=== PATIENT | male | born 1935 | race Caucasian/White ===

== ENCOUNTER 2017-07-02 16:55 | Observation (INO) ==
[2017-07-02] MEDS ORDERED: 0.9 % Sodium Chloride 1,000 ML IVC ONE (17:29)
--- NOTE | 2017-07-02 17:45 | Emergency Department Note ---
START Narrative - START START: I examined this patient and my medical decision-making was reviewed with the Resident Physician. I agree with the documented findings, disposition and treatment plan as described except to the extent set forth below. 82-year-old male presents emergency room with lightheaded symptoms. Patient denies any vertigo component. Symptoms are worse with standing up and movement. Symptoms improved while sitting down. He had a recent increase in his Coreg medication a few weeks ago. He admits he has not been eating and drinking as much. He denies any numbness in orleg.No blindness in his eye.No falls.No chestpain or shortnessofbreath.No vomitingordiarrhea. will obtain labs, ekg, urine, cxr, cta head and neck
[2017-07-02 17:46] LABS: Basophils % 0.6 %; Eosinophils # 0.1 K/mcL (0.0-0.6); Eosinophils % 1.9 %; Hematocrit 37.2 % (37.5-50.1); Hemoglobin 12.2 g/dL (12.9-16.9); Immature Granulocytes % 0.3 % (0-4); Lymphocytes # 1.7 K/mcL (0.6-4.6); Lymphocytes % 25.3 %; Mean Corpuscular HGB Conc 32.8 g/dL (31.6-35.5); Mean Corpuscular Hemoglobin 30.7 pg (28.0-33.3); Mean Corpuscular Volume 93.7 fL (83.0-100.0); Mean Platelet Volume 11.4 fL (9.4-12.4); Monocytes # 0.8 K/mcL (0.0-1.3); Monocytes % 11.5 %; Neutrophils # 4.2 K/mcL (1.6-8.9); Platelet Count 267 K/mcL (140-400); Red Blood Count 3.97 M/mcL (4.19-5.50); Red Cell Distribution Width 13.4 % (11.5-14.5); Segmented Neutrophils % 60.4 %
[2017-07-02 17:58] LABS: BUN/Creatinine Ratio 25 (6-26); Blood Urea Nitrogen 23 mg/dL (8-26); Calcium 9.1 mg/dL (8.6-10.8); Carbon Dioxide 22 mEq/L (19-29); Chloride 112 mEq/L (98-109); Glucose 118 mg/dL (70-99); Magnesium 2.3 mg/dL (1.6-2.6); Osmolality,Calculated 299 (280-300); Potassium 4.2 mEq/L (3.5-4.5); Sodium 142 mEq/L (136-145); eGFR For African Americans > 60 (> 60); eGFR For Non-African Americans > 60 (> 60)
--- NOTE | 2017-07-02 18:06 | Emergency Department Note ---
Disposition Clinical Impression: Dizziness of unknown cause Syncope Qualifiers: Syncope type: unspecified Qualified Code(s): R55 - Syncope and collapse Hypertension Qualifiers: Hypertension type: unspecified Qualified Code(s): I10 - Essential (primary) hypertension Disposition: Still a Patient Condition: Good Referrals: Spenser Malin MD [Primary Care Provider] - Forms: ED Satisfaction Letter Dizziness HPI - General Chief Complaint: ED Dizziness Stated Complaint: Dizzy Time Seen by Provider: 07/02/17 17:07 Source: patient Limitations: no limitations Nursing Notes Reviewed: Yes Vital Signs Reviewed: Yes - History of Present Illness HPI Narrative: Mr. Dumas is 82-year-old male with a past medical history of hypertension presents today with lightheaded symptoms. The patient states that he has been feeling this way for the past few weeks, but it is worse today. He describes it as feeling off balance when he stands but it improves when he sits down and rest. These episodes of feeling off balance occurred more frequently in the past 2 days. The patient states that his primary physician had recently increase his Coreg medications. He also admits that he has not been eating and drinking as much. Patient denies any headaches, fevers, changes in his vision, chest pain, palpitations, shortness of breath, difficulty breathing, abdominal pain, constipation, diarrhea, nausea and vomiting, numbness and tingling, and any weaknesses. He denies any traumas or falls. Pt Subjective Complaint: dizziness, lightheadedness Onset (ago): week(s) Description: lightheadedness, off-balance History of similar episodes: Yes History of trauma: No Improves with: rest Worsens with: movement Associated symptoms: Reports: syncope. Denies: chest pain, confusion, diaphoresis, fever, shortness of breath, weakness, vision changes, nausea, vomiting, palpitations - Related Data Home Medications Medication Instructions Recorded Confirmed Amlodipine Besylate 10 mg PO DAILY 10/01/16 10/01/16 Aspirin 325 mg PO DAILY 10/01/16 10/01/16 Clopidogrel [Plavix] 75 mg PO DAILY 10/01/16 10/01/16 Lisinopril/Hydrochlorothiazide 1 each PO DAILY 10/01/16 10/01/16 [Zestoretic 20-12.5 mg Tablet] Nitroglycerin [Nitrostat] 0.4 mg SL Q5M PRN 10/01/16 10/01/16 Tamsulosin HCl [Flomax] 0.4 mg PO DAILY 10/01/16 10/01/16 Allergies Allergy/AdvReac Type Severity Reaction Status Date / Time No Known Allergies Allergy Verified 06/17/17 21:42 Constitutional: Denies: fever, chills, weakness, weight change Eyes: Denies: eye pain, eye discharge, vision change ENT ED: Denies: ear pain, throat pain, dental pain, hearing loss, epistaxis, congestion, dysphagia Cardiovascular: Denies: chest pain, palpitations, dyspnea on exertion, edema, syncope Respiratory: Denies: cough, dyspnea, wheezes, hemoptysis, stridor Gastrointestinal: Denies: abdominal pain, nausea, vomiting, diarrhea, constipation, hematemesis, melena, hematochezia Genitourinary: Denies: urgency, dysuria, frequency, hematuria Musculoskeletal: Denies: back pain, neck pain, arthralgia, myalgia Integumentary: Denies: rash, abrasion, lesions Neurological: Reports: as per HPI. Denies: headache, weakness, numbness, paresthesias, confusion, abnormal gait, vertigo Psychiatric: Denies: anxiety, depression, suicidal thoughts, homicidal thoughts , auditory hallucinations, visual hallucinations Endocrine: Denies: fatigue Hematological/Lymphatic: Denies: easy bleeding, easy bruising Allergic/Immunologic: Denies: facial swelling, urticaria Past Medical History - Past Medical History Medical history: Reports: CVA, hypertension Surgical history: Reports: cataract (Bilateral removal) Psychiatric history: Reports: no psych history - Social History Smoking Status: Former smoker Smokeless Tobacco Status: No Alcohol use: Reports: none Drug use: Reports: none Physical Exam - General Limitations: no limitations General appearance: alert, in no apparent distress - Head Head exam: atraumatic, normocephalic, normal inspection - Eye Eye exam: Present: normal appearance, PERRL, EOMI - Expanded Eye Exam Pupils: Left: reactive - ENT ENT exam: normal exam, normal oropharynx, mucous membranes moist - Expanded ENT Exam External ear exam: Present: normal external inspection Mouth exam: Present: normal external inspection Teeth exam: Present: normal inspection Throat exam: Present: normal inspection - Neck Neck exam: Present: normal inspection, full ROM, trachea midline - Chest Chest inspection: Present: normal inspection, symmetric chest wall rise - Respiratory Respiratory exam: Present: normal lung sounds bilaterally - Cardiovascular Cardiovascular exam: Present: regular rate, normal rhythm, normal heart sounds - Abdominal Exam Abdominal exam: Present: soft, Non-Tender, normal bowel sounds. Absent: tenderness, distention, guarding, rebound, rigidity - Extremities Exam Extremities exam: Present: normal inspection, full ROM. Absent: tenderness, pedal edema - Expanded Upper Extremity Exam Shoulder exam: Present: normal inspection, full ROM Arm exam: Present: normal inspection, full ROM Elbow exam: Present: normal inspection, full ROM Forearm/Wrist exam: Present: normal inspection, full ROM Hand exam: Present: normal inspection, full ROM Vascular exam: Normal: capillary refill, radial pulse - Expanded Lower Extremity Exam Hip/Pelvis exam: Present: normal inspection, full ROM Upper leg exam: Present: normal inspection, full ROM Knee exam: Present: normal inspection, full ROM Lower leg exam: Present: normal inspection, full ROM Ankle exam: Present: normal inspection, full ROM Foot/toe exam: Present: normal inspection, full ROM Neurovascular/Tendon exam: Absent: motor deficit, sensory deficit, tendon deficit - Back Exam Back exam: Present: normal inspection, full ROM. Absent: tenderness - Neurological Exam Neurological exam: Present: alert, oriented X3 - Expanded Neurological Exam Patient oriented to: Present: person, place, time Cranial nerves: EOM function (II, III, IV, ): Normal, facial sensation (V): Normal, facial palsy (VII): Normal, tongue deviation (XII): Normal Cerebellar function: finger to nose: Normal Motor strength - LUE: 5/5 Motor strength - RUE: 5/5 Motor strength - LLE: 5/5 Motor strength - RLE: 5/5 Coma Scale Eye Opening: Spontaneous Coma Scale Motor Response: Obeys Commands Coma Scale Verbal Response: Oriented Coma Scale Total: 15 - Psychiatric Psychiatric exam: Present: normal affect, normal mood - Skin Skin exam: Present: warm, dry, intact, normal color - Other Other exam information: Negative HINTS exam. Course Course Narrative: Mr. Dumas is 82-year-old male with a past medical history of hypertension presents today with lightheaded symptoms. The patient states that he has been feeling this way for the past few weeks, but it is worse today. He describes it as feeling off balance when he stands but it improves when he sits down and rest. These episodes of feeling off balance occurred more frequently in the past 2 days. The patient states that his primary physician had recently increase his Coreg medications. He also admits that he has not been eating and drinking as much. Vital Signs Temperature 97.8 F 07/02/17 16:57 Pulse Rate 64 07/02/17 16:57 Respiratory Rate 17 07/02/17 16:57 Blood Pressure 172/76 07/02/17 16:57 O2 Sat by Pulse Oximetry 94 07/02/17 16:57 Temperature 97.8 F 07/02/17 16:57 Pulse Rate 62 07/02/17 18:39 Respiratory Rate 17 07/02/17 16:57 Blood Pressure 143/78 07/02/17 18:39 O2 Sat by Pulse Oximetry 99 07/02/17 17:15 Oxygen Delivery Oxygen Delivery Room Air Dizziness - MDM Narrative Medical decision making narrative: Mr. Dumas is 82-year-old male with a past medical history of hypertension presents today with lightheaded symptoms. The patient states that he has been feeling this way for the past few weeks, but it is worse today. He describes it as feeling off balance when he stands but it improves when he sits down and rest. These episodes of feeling off balance occurred more frequently in the past 2 days. Imaging is still pending. Will sign out patient to the night team. - Medical Records Medical records reviewed: Yes I reviewed the patient's medical records. - Lab Data Lab results reviewed: Yes I reviewed the patient's lab results. Result diagrams: 07/02/17 17:37 07/02/17 17:37 Lab Results 07/02/17 07/02/17 07/02/17 Range/Units 17:37 17:37 17:37 WBC 6.9 (4.3-11.1) K/mcL RBC 3.97 L (4.19-5.50) M/mcL Hgb 12.2 L (12.9-16.9) g/dL Hct 37.2 L (37.5-50.1) % MCV 93.7 (83.0-100.0) fL MCH 30.7 (28.0-33.3) pg MCHC 32.8 (31.6-35.5) g/dL RDW 13.4 (11.5-14.5) % Plt Count 267 (140-400) K/mcL MPV 11.4 (9.4-12.4) fL Immature Gran % 0.3 (0-4) % Seg Neutrophils % 60.4 % Lymphocytes % 25.3 % Monocytes % 11.5 % Eosinophils % 1.9 % Basophils % 0.6 % Neutrophils # 4.2 (1.6-8.9) K/mcL Lymphocytes # 1.7 (0.6-4.6) K/mcL Monocytes # 0.8 (0.0-1.3) K/mcL Eosinophils # 0.1 (0.0-0.6) K/mcL Basophils # 0.0 (0.0-0.2) K/mcL Sodium 142 (136-145) mEq/L Potassium 4.2 (3.5-4.5) mEq/L Chloride 112 H (98-109) mEq/L Carbon Dioxide 22 (19-29) mEq/L BUN 23 (8-26) mg/dL Creatinine 0.92 (0.72-1.25) mg/dL Est GFR ( Amer) > 60 (> 60) Est GFR (Non-Af Amer) > 60 (> 60) BUN/Creatinine Ratio 25 (6-26) Glucose 118 H (70-99) mg/dL Calculated Osmolality 299 (280-300) Calcium 9.1 (8.6-10.8) mg/dL Magnesium 2.3 (1.6-2.6) mg/dL Troponin I 0.02 (0-0.03) ng/mL - EKG Data EKG attestation: Yes I reviewed and interpreted this EKG. EKG shows normal: sinus rhythm Rate: bradycardia Amoret/QRS: normal Interpretation: no acute changes
[2017-07-02 19:42] LABS: Bilirubin,Urine Negative (Negative); Blood,Urine Negative (Negative); Clarity,Urine Clear (Clear); Color,Urine Yellow (Yellow); Glucose,Urine (UA) Normal (Normal); Ketones,Urine Negative (Negative); Leukocyte Esterase,Urine Negative (Negative); Nitrite,Urine Negative (Negative); Protein,Urine Negative (Neg-Trace); Specific Gravity,Urine > 1.030 (1.010-1.025); Urobilinogen,Urine Normal (Normal)
--- NOTE | 2017-07-02 20:58 | Emergency Department Note ---
Disposition Clinical Impression: Dizziness of unknown cause Syncope Qualifiers: Syncope type: unspecified Qualified Code(s): R55 - Syncope and collapse Hypertension Qualifiers: Hypertension type: unspecified Qualified Code(s): I10 - Essential (primary) hypertension Disposition: Admitted As Inpatient Condition: Good Time of Disposition: 21:10 General Adult HPI - General Chief complaint: ED Dizziness Stated complaint: Dizzy Time Seen by Provider: 07/02/17 17:07 Source: patient Limitations: no limitations Nursing Notes Reviewed: Yes Vital Signs Reviewed: Yes - History of Present Illness Pain Scale: 0 - Related Data Home Medications Medication Instructions Recorded Confirmed Amlodipine Besylate 10 mg PO DAILY 10/01/16 07/02/17 Aspirin 325 mg PO DAILY 10/01/16 07/02/17 Clopidogrel [Plavix] 75 mg PO DAILY 10/01/16 07/02/17 Nitroglycerin [Nitrostat] 0.4 mg SL Q5M PRN 10/01/16 07/02/17 Antiiva 2 tab PO DAILY 07/02/17 07/02/17 Buspirone HCl [Buspar] 5 mg PO TID PRN 07/02/17 07/02/17 Carvedilol [Coreg] 6.25 mg PO BID 07/02/17 07/02/17 Spironolactone [Aldactone] 25 mg PO DAILY 07/02/17 07/02/17 Allergies Allergy/AdvReac Type Severity Reaction Status Date / Time No Known Allergies Allergy Verified 06/17/17 21:42 All systems ED: reviewed and negative except as stated. Constitutional: Denies: fever, chills, weakness, weight change Eyes: Denies: eye pain, eye discharge, vision change ENT ED: Denies: ear pain, throat pain, dental pain, hearing loss, epistaxis, congestion, dysphagia Cardiovascular: Denies: chest pain, palpitations, dyspnea on exertion, edema, syncope Respiratory: Denies: cough, dyspnea, wheezes, hemoptysis, stridor Gastrointestinal: Denies: abdominal pain, nausea, vomiting, diarrhea, constipation, hematemesis, melena, hematochezia Genitourinary: Denies: urgency, dysuria, frequency, hematuria Musculoskeletal: Denies: back pain, neck pain, arthralgia, myalgia Integumentary: Denies: rash, abrasion, lesions Neurological: Reports: as per HPI. Denies: headache, weakness, numbness, paresthesias, confusion, abnormal gait, vertigo Psychiatric: Denies: anxiety, depression, suicidal thoughts, homicidal thoughts , auditory hallucinations, visual hallucinations Endocrine: Denies: fatigue Hematological/Lymphatic: Denies: easy bleeding, easy bruising Allergic/Immunologic: Denies: facial swelling, urticaria Past Medical History - Past Medical History Medical history: Reports: CVA, hypertension Surgical history: Reports: cataract (Bilateral removal) Psychiatric history: Reports: no psych history - Social History Smoking Status: Former smoker Smokeless Tobacco Status: No Alcohol use: Reports: none Drug use: Reports: none Physical Exam - General Limitations: no limitations General appearance: alert, in no apparent distress - Head Head exam: atraumatic, normocephalic, normal inspection - Eye Eye exam: Present: normal appearance, PERRL, EOMI - ENT ENT exam: normal exam, normal oropharynx, mucous membranes moist - Neck Neck exam: Present: normal inspection, full ROM, trachea midline - Chest Chest inspection: Present: normal inspection, symmetric chest wall rise. Absent : tenderness - Respiratory Respiratory exam: Present: normal lung sounds bilaterally. Absent: respiratory distress, accessory muscle use - Cardiovascular Cardiovascular exam: Present: regular rate, normal rhythm, normal heart sounds - Extremities Exam Extremities exam: Present: normal inspection, full ROM. Absent: tenderness, pedal edema - Neurological Exam Neurological exam: Present: alert, oriented X3 - Psychiatric Psychiatric exam: Present: normal affect, normal mood - Skin Skin exam: Present: warm, dry, intact, normal color Course Course Narrative: Patient signed out by vincenzo. Please see their notes for further. Concerns were for central versus peripheral lesion for near syncopal episodes and dizziness. Patient is resting comfortably in bed at this time. States that this is been going on for several weeks. CTA of patient's head and neck showed several areas of progressive stenosis. I spoke with the neurologist on-call. He is requesting the patient be admitted to the hospital. Will see him while he is admitted. I agree that admission is the appropriate action for this patient. He initially refused admission however after speaking with him again in discussing that the neurologist would also feel comfortable if he was admitted he is agreeable. We will admit him to the hospital. - Consultations Consultation #1: Dr Camejo accepted Pt in stable condition. Time: 20:51 Consultation #2: I spoke with Dr Shi who recommended admission. He states that he will see the Pt in the morning here. Time: 20:15 Vital Signs Temperature 97.8 F 07/02/17 16:57 Pulse Rate 64 07/02/17 16:57 Respiratory Rate 17 07/02/17 16:57 Blood Pressure 172/76 07/02/17 16:57 O2 Sat by Pulse Oximetry 94 07/02/17 16:57 Temperature 97.8 F 07/02/17 16:57 Pulse Rate 62 07/02/17 18:39 Respiratory Rate 18 07/02/17 21:24 Blood Pressure 150/85 07/02/17 21:24 O2 Sat by Pulse Oximetry 99 07/02/17 17:15 Oxygen Delivery Oxygen Delivery Room Air Medical Decision Making - Medical Records Medical records reviewed: Yes I reviewed the patient's medical records. - Lab Data Lab results reviewed: Yes I reviewed the patient's lab results. Result diagrams: 07/02/17 17:37 07/02/17 17:37 Lab Results 07/02/17 07/02/17 07/02/17 Range/Units 17:37 17:37 17:37 WBC 6.9 (4.3-11.1) K/mcL RBC 3.97 L (4.19-5.50) M/mcL Hgb 12.2 L (12.9-16.9) g/dL Hct 37.2 L (37.5-50.1) % MCV 93.7 (83.0-100.0) fL MCH 30.7 (28.0-33.3) pg MCHC 32.8 (31.6-35.5) g/dL RDW 13.4 (11.5-14.5) % Plt Count 267 (140-400) K/mcL MPV 11.4 (9.4-12.4) fL Immature Gran % 0.3 (0-4) % Seg Neutrophils % 60.4 % Lymphocytes % 25.3 % Monocytes % 11.5 % Eosinophils % 1.9 % Basophils % 0.6 % Neutrophils # 4.2 (1.6-8.9) K/mcL Lymphocytes # 1.7 (0.6-4.6) K/mcL Monocytes # 0.8 (0.0-1.3) K/mcL Eosinophils # 0.1 (0.0-0.6) K/mcL Basophils # 0.0 (0.0-0.2) K/mcL Sodium 142 (136-145) mEq/L Potassium 4.2 (3.5-4.5) mEq/L Chloride 112 H (98-109) mEq/L Carbon Dioxide 22 (19-29) mEq/L BUN 23 (8-26) mg/dL Creatinine 0.92 (0.72-1.25) mg/dL Est GFR ( Amer) > 60 (> 60) Est GFR (Non-Af Amer) > 60 (> 60) BUN/Creatinine Ratio 25 (6-26) Glucose 118 H (70-99) mg/dL Calculated Osmolality 299 (280-300) Calcium 9.1 (8.6-10.8) mg/dL Magnesium 2.3 (1.6-2.6) mg/dL Troponin I 0.02 (0-0.03) ng/mL Urine Color (Yellow) Urine Clarity (Clear) Urine pH (5.0-8.0) pH Units Ur Specific [place] (1.010-1.025) Urine Protein (Neg-Trace) mg/dL Urine Glucose (UA) (Normal) mg/dL Urine Ketones (Negative) mg/dL Urine Blood (Negative) Urine Nitrite (Negative) Urine Bilirubin (Negative) Urine Urobilinogen (Normal) mg/dL Ur Leukocyte Esterase (Negative) Ur Culture Indicated? (NO) 07/02/17 Range/Units 19:35 WBC (4.3-11.1) K/mcL RBC (4.19-5.50) M/mcL Hgb (12.9-16.9) g/dL Hct (37.5-50.1) % MCV (83.0-100.0) fL MCH (28.0-33.3) pg MCHC (31.6-35.5) g/dL RDW (11.5-14.5) % Plt Count (140-400) K/mcL MPV (9.4-12.4) fL Immature Gran % (0-4) % Seg Neutrophils % % Lymphocytes % % Monocytes % % Eosinophils % % Basophils % % Neutrophils # (1.6-8.9) K/mcL Lymphocytes # (0.6-4.6) K/mcL Monocytes # (0.0-1.3) K/mcL Eosinophils # (0.0-0.6) K/mcL Basophils # (0.0-0.2) K/mcL Sodium (136-145) mEq/L Potassium (3.5-4.5) mEq/L Chloride (98-109) mEq/L Carbon Dioxide (19-29) mEq/L BUN (8-26) mg/dL Creatinine (0.72-1.25) mg/dL Est GFR ( Amer) (> 60) Est GFR (Non-Af Amer) (> 60) BUN/Creatinine Ratio (6-26) Glucose (70-99) mg/dL Calculated Osmolality (280-300) Calcium (8.6-10.8) mg/dL Magnesium (1.6-2.6) mg/dL Troponin I (0-0.03) ng/mL Urine Color Yellow (Yellow) Urine Clarity Clear (Clear) Urine pH 6.0 (5.0-8.0) pH Units Ur Specific [place] > 1.030 H (1.010-1.025) Urine Protein Negative (Neg-Trace) mg/dL Urine Glucose (UA) Normal (Normal) mg/dL Urine Ketones Negative (Negative) mg/dL Urine Blood Negative (Negative) Urine Nitrite Negative (Negative) Urine Bilirubin Negative (Negative) Urine Urobilinogen Normal (Normal) mg/dL Ur Leukocyte Esterase Negative (Negative) Ur Culture Indicated? NO (NO) - Radiology Data Radiology results reviewed: Yes I reviewed the patient's radiology results. Angiography CT 07/02/17 17:27 IMPRESSION: No acute intracranial abnormality. Small old infarction in the right cerebellar hemisphere, stable. Mild parenchymal volume loss. Mild chronic microvascular disease. Multiple areas of focal stenosis in the intracranial vessels, likely related to atherosclerotic disease. 40% focal stenosis at the proximal A2 segment of the right BERTHA, grossly stable. 40% focal stenosis at the origins of the M2 segments of the bilateral MCAs, grossly stable. origins of the bilateral industrial relations counselor. 40-60% focal stenosis at the P2 segment of the bilateral industrial relations counselor, stable on the left and improved on the right. 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 Occlusion of the right vertebral artery starting from its origin with reconstitution in the mid V2 segment and minimally in the V3 segment, stable to minimally progressed. 30-40% focal stenosis at the origins of the bilateral cervical internal arteries, stable. D/ / Oracio Xie MD / Oracio Xie MD Interpreting Provider: Oracio Xie MD Neck CTA 07/02/17 17:27 IMPRESSION: No acute intracranial abnormality. Small old infarction in the right cerebellar hemisphere, stable. Mild parenchymal volume loss. Mild chronic microvascular disease. Multiple areas of focal stenosis in the intracranial vessels, likely related to atherosclerotic disease. 40% focal stenosis at the proximal A2 segment of the right BERTHA, grossly stable. 40% focal stenosis at the origins of the M2 segments of the bilateral MCAs, grossly stable. origins of the bilateral industrial relations counselor. 40-60% focal stenosis at the P2 segment of the bilateral industrial relations counselor, stable on the left and improved on the right. 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 Occlusion of the right vertebral artery starting from its origin with reconstitution in the mid V2 segment and minimally in the V3 segment, stable to minimally progressed. 30-40% focal stenosis at the origins of the bilateral cervical internal arteries, stable. D/ / Oracio Xie MD / Oracio Xie MD Interpreting Provider: Oracio Xie MD Chest X-Ray 07/02/17 17:45 IMPRESSION: No evidence of acute cardiopulmonary disease. D/ / Kvng Ferguson MD / Kvng Ferguson MD Interpreting Provider: Kvng Ferguson MD Attestation Statement - Attestation Attestation: I, Hoang Collins MD, personally evaluated this patient and discussed their management with the resident physician. I reviewed the resident's note and agree with the documented findings, medical decision making, and plan of care. This patient was signed out at shift change from Dr. Constantino and Dr. Brantley. Please refer to their notes for complete details of the history and physical examination. At shift change patient is awaiting lab results and a CTA of the head and neck. Patient is an 82-year-old male who presented complaining of some dizziness and lightheadedness over the past several weeks which has gotten significantly worse over the past few days. On examination patient is a well-developed well-nourished elderly male in no acute distress. He is alert and oriented 3. There is no cyanosis or diaphoresis. Chest is nontender to palpation. Breath sounds clear and equal bilaterally. Heart regular rate and rhythm. Abdomen is soft and nontender with normal bowel sounds. No gross focal neurological deficits. Labs reviewed. CTA of the head and neck shows multiple areas of cerebrovascular atherosclerosis with progression of disease compared to previous exam. Dr. Tellez discussed with neurology, Dr. Shi, and he recommended admission by the hospitalist. The hospitalist, Dr. Camejo, was consulted and accepted admission of the patient.
[2017-07-02] MEDS ORDERED: Naloxone 0.4 MG/ML INJ IVP PRN (21:47)
--- NOTE | 2017-07-02 21:53 | Internal Med History&Physical ---
Date of Encounter: 07/02/17 Time of Encounter: 21:52 Assessment and Plan (1) Dizziness of unknown cause Current visit: Yes Status: Acute Known vascular path. Question whether presentation could be related to vascular insufficiency. To have neuro assist in evaluation and optimized medical management Check orthostatic, PT/PT (doubt related to recent adjustment in coreg dose). Avoid lowering blood pressure too aggressively to provide adequate cerebral perfusion Has been on aspirin, Plavix. We will add Lipitor (2) Hypertension Current visit: Yes Status: Acute Continue medicines, check orthostatics Qualifiers: Hypertension type: unspecified Qualified Code(s): I10 - Essential (primary ) hypertension (3) Cerebrovascular accident Current visit: No Status: Acute History of CVA. Qualifiers: CVA mechanism: unspecified Qualified Code(s): I63.9 - Cerebral infarction, unspecified (4) Fall Current visit: No Status: Acute Related to dizziness/ off balance. Pending w/u above Qualifiers: Encounter type: subsequent encounter Qualified Code(s): W19.XXXD - Unspecified fall, subsequent encounter (5) TIA (transient ischemic attack) Current visit: No Status: Acute hx of TIA Qualifiers: Transient cerebral ischemia type: other Qualified Code(s): G45.8 - Other transient cerebral ischemic attacks and related syndromes Internal Medicine - H&P: HPI Chief complaint: BalanceOff balance History of present illness: Mr. Dumas is a 82 year old male who presents with subacute onset spells of being off balance. He does have a history of CVA in 2010 and has a known history of cerebral circulatory stenosis. He describes feeling spells of off balance for the last 5 weeks now with multiple episodes of near falls up to a dozen times. He also had fallen twice at home in the last couple weeks. He does not use a cane or walker at baseline he describes feeling off balance, denies vertigo, and experiences difficulty walking and standing. Experiences difficulty with ambulatory ambulatory function across the room in his home. Of note his Coreg dose was recently adjusted but is not certain whether his symptoms were related to that medication adjustments. He did however report that his off balance spells were improved with sitting . He mentions that he could be standing for a couple minutes before feeling off balance with presyncopal symptoms. On review 3-4 days ago he had paresthesia sensation of his right hand. She resolved very quickly over one day the ED discussed case with Dr. Shi of neurology who would assist in evaluation given CT anginal findings vascular stenosis diffusely EKG personally reviewed with rate 58, sinus bradycardia XR/XR chest 1V portable IMPRESSION: No evidence of acute cardiopulmonary disease. FINDINGS: CT HEAD: BRAIN/VENTRICLES: There is mild parenchymal volume loss. There is periventricular white matter low attenuation, likely related to mild chronic microvascular disease. There is a small old infarction in the right cerebellar hemisphere. No acute intracranial hemorrhage or extraaxial fluid collection. Mtz-white differentiation is maintained. No evidence of mass, mass effect or midline shift. No evidence of hydrocephalus. ORBITS: The visualized portion of the orbits demonstrate no acute abnormality. SINUSES: There is scattered minimal mucosal thickening in the paranasal sinuses. The bilateral mastoid air cells are clear. SOFT TISSUES/SKULL: No acute abnormality of the visualized skull or soft tissues. CTA NECK: AORTIC ARCH/GREAT VESSELS: There is a normal branch pattern of the aortic arch. There is moderate atherosclerotic disease at the aortic arch, without flow limiting stenosis at the origins of the great vessels. No significant stenosis is seen of the innominate artery or subclavian arteries. CAROTID ARTERIES: The common carotid arteries are normal in appearance without evidence of a flow limiting stenosis. There is moderate atherosclerotic disease at the bilateral carotid bulbs, contributing to approximately 30-40% focal stenosis at the origins of the bilateral internal arteries by NASCET criteria, stable. No dissection or arterial injury is seen. VERTEBRAL ARTERIES: The vertebral arteries both arise from the subclavian arteries. There is occlusion of the right vertebral artery starting from its origin with reconstitution in the mid V2 segment. There is near occlusion at the distal V2 segment of the right vertebral artery with a area of mild contrast opacification in the right V4 segment, stable to minimally progressed. The left cervical vertebral artery is small in caliber, without flow limiting stenosis, grossly stable. SOFT TISSUES: The lung apices are clear. No cervical or superior mediastinal lymphadenopathy. The visualized portion of the larynx and pharynx appear unremarkable. The parotid, submandibular and thyroid glands demonstrate no acute abnormality. BONES: The visualized osseous structures appear unremarkable. CTA HEAD: ANTERIOR CIRCULATION: The internal carotid arteries are normal in course and caliber without focal stenosis. There is approximately 40% focal stenosis at the proximal A2 segment of the right BERTHA, grossly stable. There is up to 40% focal stenosis at the origin of the M2 segments of the bilateral MCAs, grossly stable. The remainder of the anterior cerebral and middle cerebral arteries demonstrate no focal stenosis. The anterior communicating artery is patent. POSTERIOR CIRCULATION: There is origin of the bilateral sales exec with hypoplastic bilateral P1 segments. There is approximately 40-60% focal stenosis at the P2 segment of the bilateral sales exec, stable on the left and improved on the right. The remainder of the bilateral sales exec are patent. 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 There are areas of moderate to severe focal stenosis in the proximal to mid basilar artery, most severe at is origin with near occlusion, grossly stable. There is occlusion of the V4 segment of the right vertebral artery, progressed. There is severe stenosis of the left vertebral artery with multiple areas of near occlusion in the mid to distal portion of the left V4 segment, stable to minimally progressed. ANEURYSM: No intracranial aneurysm is seen. CT/CT angio neck IMPRESSION: No acute intracranial abnormality. Small old infarction in the right cerebellar hemisphere, stable. Mild parenchymal volume loss. Mild chronic microvascular disease. Multiple areas of focal stenosis in the intracranial vessels, likely related to atherosclerotic disease. 40% focal stenosis at the proximal A2 segment of the right BERTHA, grossly stable. 40% focal stenosis at the origins of the M2 segments of the bilateral MCAs, grossly stable. origins of the bilateral sales exec. 40-60% focal stenosis at the P2 segment of the bilateral sales exec, stable on the left and improved on the right. 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 Occlusion of the right vertebral artery starting from its origin with reconstitution in the mid V2 segment and minimally in the V3 segment, stable to minimally progressed. 30-40% focal stenosis at the origins of the bilateral cervical internal arteries, stable. Past Med Surg Social Fam HX - Past Medical History Medical history: CVA, hypertension Psychiatric history: no psych history - Past Surgical History Surgical History: cataract (Bilateral removal) - Social History Smoking Status: Former smoker Smokeless Tobacco Status: No Alcohol use: none Drug use: none - Family History Brother Hx Family Cardiac Disorders: Yes ([place]) Mother Living Status: Hx Family Cardiac Disorders: Yes Internal Medicine - H&P: Meds Amlodipine Besylate 10 mg PO DAILY 10/01/16 [History] Aspirin 325 mg PO DAILY 10/01/16 [History] Clopidogrel [Plavix] 75 mg PO DAILY 10/01/16 [History] Nitroglycerin [Nitrostat] 0.4 mg SL Q5M PRN 10/01/16 [History] Antiiva 2 tab PO DAILY 07/02/17 [History] Buspirone HCl [Buspar] 5 mg PO TID PRN 07/02/17 [History] Carvedilol [Coreg] 6.25 mg PO BID 07/02/17 [History] Spironolactone [Aldactone] 25 mg PO DAILY 07/02/17 [History] 3 Allergy/AdvReac Type Severity Reaction Status Date / Time No Known Allergies Allergy Verified 06/17/17 21:42 All Systems PM: A 10-system review of systems was performed and is negative for pertinent findings except as documented above in the HPI. Review of systems: ROS 14 point review of systems reviewed as best as possible given presentation. Pertinent positive or negative as per HPI or otherwise reviewed as negative - Constitutional Vitals: Temp Pulse Resp BP Pulse Ox 97.7 F 65 16 167/67 96 07/02/17 21:44 07/02/17 21:44 07/02/17 21:44 07/02/17 21:44 07/02/17 21:44 Exam: General - AAO x 3 Psych - Appropriate affect/speech. No agitation Eyes - DEBBIE. Eye lids intact. No scleral icterus Neuro - No gross peripheral or central neuro deficits with intact CN 2-12 exam Heart - Sinus cindy. RRR. S1 and S2 present. No added HS/murmurs appreciated. No elevated JVD appreciated. Lung - Adequate air entry b/l, No crackles/wheezes appreciated GI - Soft, non-tender. No hepatosplenomegaly/ascites. BS+ - No CVA/suprapubic tenderness or palpable bladder distension Skin - Intact. No rash/petechiae/ecchymosis. Warm extremities Internal Med - H&P Results - Labs CBC & Chem 7: 07/02/17 17:37 07/02/17 17:37
[2017-07-02] MEDS: Aspirin 325 MG TABLET PO SCH (23:26)
[2017-07-02] MEDS: amLODIPine 5 MG TABLET PO SCH (23:27)
[2017-07-02] MEDS: Spironolactone 25 MG TABLET PO SCH (23:27)
[2017-07-03] MEDS ORDERED: Spironolactone 25 MG TABLET PO SCH (09:00)
[2017-07-03] MEDS ORDERED: amLODIPine 5 MG TABLET PO SCH (09:00)
[2017-07-03] MEDS ORDERED: Aspirin 325 MG TABLET PO SCH (09:00)
--- NOTE | 2017-07-03 11:08 | Neurology - Consult Note ---
<Robles Schrader - Last Filed: 07/03/17 10:58> Date of Encounter: 07/03/17 Time of Encounter: 10:00 Assessment and Plan (1) Dizziness of unknown cause Current Visit: Yes Status: Acute Patient reports having diziness for the past year with worsening in the past couple months and further worsening in the past 2 weeks. He reports that he has several episodes a day with each episode lasting 3-4 minutes. He reports having fallen several times, with the last known fall being 2 days ago. He denies having any focal symptoms. He has been taking 325 asa and 75 plavix daily since his CVA. PE did not show any neurologic deficits. CTA did show many areas of focal stenosis in his cerebral arteries. Of these the moderate-severe stenosis seen in his basilar artery could potentially be contributing to his current symptoms. Recommend MRI Continue Plavix (2) History of CVA (cerebrovascular accident) Current Visit: No Status: Acute Prior CVA in 2010. No residual deficits. History of Present Illness Chief complaint: Dizziness HPI: Mr. Dumas is a 82 year old male with prior medical history of hypertension and CVA 2010 who presents to [facility] yesterday evening with reports of episodic dizzy spells. He reports that he has noticed increased dizziness for the last year but it has worsened in the last couple months and further worsening last 2 weeks. He states that he has fallen twice, without injuries, and has had many other episodes of almost falling. He denies having vertigo or spinning sensation, reports general dizziness in which she will start to veer to his right. He denies having sensation of presyncope denies loss of consciousness. Each of these episodes typically last 3-4 minutes and has observed that sitting or couple minutes and will resolve the episodes. He reports that the episodes seemed to start when he is standing for a little bit. He denies having any focal symptoms, denies headaches, denies changes in his vision or loss of vision. He denies weakness or loss of sensation in any part of his body. 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 Past Med Surg Social Fam HX - Past Medical History Medical history: CVA, hypertension Psychiatric history: no psych history - Past Surgical History Surgical History: cataract (Bilateral removal) - Social History Smoking Status: Former smoker Smokeless Tobacco Status: No Alcohol use: none Drug use: none - Family History Brother Hx Family Cardiac Disorders: Yes ([place]) Mother Living Status: Hx Family Cardiac Disorders: Yes Medications and Allergies Amlodipine Besylate 10 mg PO DAILY 10/01/16 [History] Aspirin 325 mg PO DAILY 10/01/16 [History] Clopidogrel [Plavix] 75 mg PO DAILY 10/01/16 [History] Nitroglycerin [Nitrostat] 0.4 mg SL Q5M PRN 10/01/16 [History] Antiiva 2 tab PO DAILY 07/02/17 [History] Buspirone HCl [Buspar] 5 mg PO TID PRN 07/02/17 [History] Carvedilol [Coreg] 6.25 mg PO BID 07/02/17 [History] Spironolactone [Aldactone] 25 mg PO DAILY 07/02/17 [History] 3 Allergy/AdvReac Type Severity Reaction Status Date / Time No Known Allergies Allergy Verified 06/17/17 21:42 - Constitutional Constitutional ROS IM: no anorexia, no chills, no fatigue, no fever(s), no headache(s), no weakness - Nose, Mouth, Throat Nose, mouth and throat: dizziness, no disequilibrium, no headache(s), no vertigo - Cardiovascular Cardiovascular ROS IM: no chest pain, no palpitations - Gastrointestinal Gastrointestinal: no abdominal pain, no nausea, no vomiting - Musculoskeletal Musculoskeletal ROS IM: abnormal gait, no muscle weakness, no neck pain, no numbness, no stiffness, no tingling - Neurological Neurological ROS: abnormal gait, disequilibrium, dizziness, frequent falls, vertigo (Last fall 2 days ago), no abnormal hearing, no abnormal movements, no confusion, no focal weakness, no headache(s), no lack of coordination, no loss of vision, no numbness, no sensory deficit, no syncope, no tingling, no weakness , no other visual disturbances Physical Examination - Vital Signs Vital Signs: Initial Vital Signs Temp Pulse Resp BP Pulse Ox 97.8 F 64 17 172/76 94 07/02/17 16:57 07/02/17 16:57 07/02/17 16:57 07/02/17 16:57 07/02/17 16:57 - Constitutional General appearance: comfortable, younger than stated age - Neurologic Sensorimotor examination: intact Detailed motor examination: grossly full strength in all extremities, full strength in all major muscle groups Motor examination - right side: 02/07: deltoids, biceps, triceps, wrist flexion, wrist extension, director of physician practices, hip flexors, tibialis Anterior, quadriceps, toe extension (EHL), plantarflexion Motor examination - left side: 02/07: deltoids, biceps, triceps, wrist flexion, wrist extension, hip flexors, director of physician practices, quadriceps, tibialis Anterior, toe extension (EHL), plantarflexion Detailed sensory examination: intact Reflex and gait examination: intact Reflexes: Biceps: 2+, Triceps: 2+, Brachioradialis: 2+, Patella: 2+, Achilles: 2 + Mental Status Examination: awake, alert, oriented to person, oriented to place, oriented to time, follows commands appropriately, answers questions appropriately Cranial nerve examination: PERRL, EOMI, visual day intact, sensory to face intact, no facial asymmetry is present, no dysarthria, hearing is intact symmetrically, tongue protrudes midline, no atrophy or facial fasiculations present Cerebellar examination: no dysmetria, performs finger to nose and heel to quiros symmetrically without ataxia, no gait ataxia, no truncal ataxia, no difficulty with rapid alternating movements Results - Laboratory Findings CBC and BMP: 07/02/17 17:37 07/02/17 17:37 Abnormal lab findings: Abnormal lab results RBC 3.97 M/mcL (4.19-5.50) L 07/02/17 17:37 Hgb 12.2 g/dL (12.9-16.9) L 07/02/17 17:37 Hct 37.2 % (37.5-50.1) L 07/02/17 17:37 Chloride 112 mEq/L (98-109) H 07/02/17 17:37 Glucose 118 mg/dL (70-99) H 07/02/17 17:37 POC Glucose 123 (58-89) H 07/02/17 17:24 Ur Specific [place] > 1.030 (1.010-1.025) H 07/02/17 19:35 Consult Discharge Plan - Plan Referrals: Spenser Malin MD [Primary Care Provider] - <Perry Shi - Last Filed: 07/03/17 17:15> Date of Encounter: 07/03/17 Assessment and Plan (1) Dizziness of unknown cause Current Visit: Yes Status: Acute I agree with Dr. Schrader's differential as stated above. This gentleman unfortunately has multiple intracranial stenosis including in the basilar and vertebral arteries. The nature of his events does not seem to be consistent with an anterior circulation event. Certainly a brainstem event or perhaps one of the cerebellar arteries could cause this temporary and balance and staggering toward the right. He also seems momentarily confused to rule out the possibility of a partial seizure. He does not really seem to have a decreased level of consciousness. Instrument is adamantly against an MRI scan of the brain. Even if there were small infarct not certain if there is much more to offer as he is already on a combination of Plavix and aspirin daily. There may be a relative indication for anticoagulation however there really are not any studies to improve its effectiveness under this scenario. Unfortunately there may not be much else to offer. I am not convinced that we are dealing with any labyrinthine cause of the spells. I will obtain an EEG and see him tomorrow. History of Present Illness HPI: Chart was reviewed independently, the patient was seen and examined along with Dr. Schrader. I agree with his history as stated above. All Systems: A 10-system review of systems was performed and is negative for pertinent findings except as documented above in the HPI. Physical Examination - Vital Signs Vital Signs: Initial Vital Signs Temp Pulse Resp BP Pulse Ox 97.8 F 64 17 172/76 94 07/02/17 16:57 07/02/17 16:57 07/02/17 16:57 07/02/17 16:57 07/02/17 16:57 - Neurologic Detailed motor examination: full strength in all major muscle groups Motor examination - right side: 5/5: deltoids, biceps, triceps, wrist flexion, wrist extension, director of physician practices, hip flexors, tibialis Anterior, quadriceps, toe extension (EHL), plantarflexion Motor examination - left side: 5/5: deltoids, biceps, triceps, wrist flexion, wrist extension, hip flexors, director of physician practices, quadriceps, tibialis Anterior, toe extension (EHL), plantarflexion Mental Status Examination: awake, alert, oriented to person, oriented to place, oriented to time, follows commands appropriately, answers questions appropriately, no agnosia, no aphasia, no aproxia Cranial nerve examination: PERRL, EOMI, visual day intact, corneal reflexes brisk symmetrically, sensory to face intact, mastication intact, no facial asymmetry is present, no dysarthria, hearing is intact symmetrically, soft palate elevates bilaterally upon phonation, gag reflex intact, flexes SCM and trapezius muscles symmetrically with full power, tongue protrudes midline, no atrophy or facial fasiculations present Cerebellar examination: no dysmetria, performs finger to nose and heel to quiros symmetrically without ataxia, no gait ataxia, no truncal ataxia, no difficulty with rapid alternating movements Results - Laboratory Findings CBC and BMP: 07/02/17 17:37 07/02/17 17:37 Abnormal lab findings: Abnormal lab results RBC 3.97 M/mcL (4.19-5.50) L 07/02/17 17:37 Hgb 12.2 g/dL (12.9-16.9) L 07/02/17 17:37 Hct 37.2 % (37.5-50.1) L 07/02/17 17:37 Chloride 112 mEq/L (98-109) H 07/02/17 17:37 Glucose 118 mg/dL (70-99) H 07/02/17 17:37 POC Glucose 123 (58-89) H 07/02/17 17:24 Ur Specific [place] > 1.030 (1.010-1.025) H 07/02/17 19:35
--- NOTE | 2017-07-03 15:59 | Internal Med Progress Note ---
Date of Encounter: 07/08/17 Time of Encounter: 15:53 - Assessment and plan (1) Dizziness of unknown cause Status: Acute Assessment and plan: Presented with spells of feeling off balance intermittent for 5 weeks prior to presentation, now worsening with multiple episodes of near falls. Patient states he will veer off to the right when he is ambulating. CTA with multiple areas of focal cerebral artery stenosis, some moderate to severe stenosis and basilar artery. Continue ASA, Plavix, statin. Neurology, PT/OT consulted. Brain MRI pending. (2) Hypertension Status: Chronic Assessment and plan: per hx. BP variable and mildly elevated at times however acceptable. Will allow for permissive hypertension to encourage cerebral perfusion. Monitor BP and titrate PRN Qualifiers: Hypertension type: essential hypertension Qualified Code(s): I10 - Essential (primary) hypertension (3) History of CVA (cerebrovascular accident) Status: Chronic Assessment and plan: With no residual effects. Continue home ASA, Plavix, statin (4) DVT prophylaxis Status: Acute - Time Spent With Patient 25 - 35 minutes - Subjective Interval history: Seen and examined at bedside. Says he feels fine at the current moment. No lightheadedness or dizziness. Says symptoms only occur when he is ambulating any veers off to the right. Symptoms come and go and are unpredictable. Denies chest pain, no shortness of breath. No headache, no change in vision, no blurred vision. No palpitations - Constitutional Vitals: Temp Pulse Resp BP Pulse Ox 97.7 F 63 16 149/67 97 07/03/17 15:12 07/03/17 15:12 07/03/17 15:12 07/03/17 15:12 07/03/17 15:12 General appearance: Present: A&O X 3 - Head Head exam: Present: atraumatic, normocephalic - Eye Eye exam: Present: PERRL, conjuntiva pink, sclera anicteric Pupils: Present: PERRL - Neck Neck exam general surgery: Present: supple, trachea midline. Absent: lymphadenopathy - Respiratory Respiratory exam: Present: CTAB. Absent: accessory muscle use, rales, rhonchi, wheezes - Cardiovascular Cardiovascular exam: Present: RRR, +S1, +S2. Absent: diastolic murmur, gallop, rubs, systolic murmur - GI/Abdominal GI/Abdominal exam: Present: normal bowel sounds, soft, no peritoneal signs. Absent: distended, tenderness - Extremities Exam Extremities exam: Present: warm, radial pulses palpable and symmetrical. Absent : calf tenderness, cyanotic, pedal edema - Neurological Exam Neurological exam: Present: CN II-XII intact, oriented X3, no focal deficits. Absent: pronater drift, facial droop, speech deficit - Skin Skin exam: Present: dry, intact Internal Medicine: Result - Labs CBC & Chem 7: 07/04/17 04:14 07/04/17 04:14 Consult Discharge Plan - Plan Instructions: Atorvastatin (By mouth), Non-epileptic Seizures (DC), Dizziness, Lan Analyst (GEN) Referrals: Perry Shi DO [Partnered Physician] - 07/21/17 8:00 am Spenser Malin MD [Primary Care Provider] - 07/08/17 3:30 pm Prescriptions: Atorvastatin [Lipitor] 40 mg PO HS #30 tablet levETIRAcetam [Keppra] 250 mg PO BID #60 tablet
[2017-07-03] MEDS ORDERED: *HR* LORazepam 2 MG/ML VIAL IVP ONE (16:09)
--- NOTE | 2017-07-03 19:40 | Electrocardiograph Report ---
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
[2017-07-03] MEDS: Aspirin 325 MG TABLET PO SCH (19:57)
[2017-07-03] MEDS: amLODIPine 5 MG TABLET PO SCH (19:58)
[2017-07-03] MEDS: Spironolactone 25 MG TABLET PO SCH (20:06)
[2017-07-04 04:35] LABS: Hematocrit 37.3 % (37.5-50.1); Hemoglobin 12.3 g/dL (12.9-16.9); Mean Corpuscular Hemoglobin 30.8 pg (28.0-33.3); Mean Corpuscular Volume 93.5 fL (83.0-100.0); Mean Platelet Volume 11.6 fL (9.4-12.4); Platelet Count 241 K/mcL (140-400); Red Blood Count 3.99 M/mcL (4.19-5.50); Red Cell Distribution Width 13.2 % (11.5-14.5)
[2017-07-04 04:48] LABS: Alanine Aminotransferase 10 Units/L (0-55); Albumin 3.3 g/dL (3.5-5.0); Albumin/Globulin Ratio 1.2 (1.1-2.2); Alkaline Phosphatase 72 Units/L (38-126); Aspartate Amino Transferase 14 Units/L (5-34); BUN/Creatinine Ratio 17 (6-26); Bilirubin,Total 0.4 mg/dL (0.2-1.2); Blood Urea Nitrogen 16 mg/dL (8-26); Calcium 9.6 mg/dL (8.6-10.8); Carbon Dioxide 27 mEq/L (19-29); Chloride 107 mEq/L (98-109); Globulin 2.8 g/dL (2.4-3.5); Glucose 90 mg/dL (70-99); Osmolality,Calculated 295 (280-300); Potassium 3.6 mEq/L (3.5-4.5); Sodium 142 mEq/L (136-145); Total Protein 6.1 g/dL (6.0-8.3); eGFR For African Americans > 60 (> 60); eGFR For Non-African Americans > 60 (> 60)
[2017-07-04 11:33] VITALS: BP 116/49
--- NOTE | 2017-07-04 11:50 | Discharge Summary ---
<Ivy Pickard - Last Filed: 07/04/17 15:02> Date of Encounter: 07/04/17 Time of Encounter: 11:48 - Discharge Diagnosis (1) Dizziness of unknown cause Priority: Primary Status: Acute Comments: CTA showed many focal areas of stenosis in cerebral arteries (2) Hypertension Priority: Secondary Status: Chronic Qualifiers: Hypertension type: unspecified Qualified Code(s): I10 - Essential (primary ) hypertension (3) History of CVA (cerebrovascular accident) Priority: Secondary Status: Chronic - Discharge Medications Prescriptions: Atorvastatin [Lipitor] 40 mg PO HS #30 tablet levETIRAcetam [Keppra] 250 mg PO BID #60 tablet Home Medications: Amlodipine Besylate 10 mg PO DAILY 10/01/16 [History] Aspirin 325 mg PO DAILY 10/01/16 [History] Clopidogrel [Plavix] 75 mg PO DAILY 10/01/16 [History] Nitroglycerin [Nitrostat] 0.4 mg SL Q5M PRN 10/01/16 [History] Antiiva 2 tab PO DAILY 07/02/17 [History] Buspirone HCl [Buspar] 5 mg PO TID PRN 07/02/17 [History] Carvedilol [Coreg] 6.25 mg PO BID 07/02/17 [History] Spironolactone [Aldactone] 25 mg PO DAILY 07/02/17 [History] Atorvastatin [Lipitor] 40 mg PO HS #30 tablet 07/04/17 [Rx] levETIRAcetam [Keppra] 250 mg PO BID #60 tablet 07/04/17 [Rx] Allergies/Adverse Reactions: 3 Allergy/AdvReac Type Severity Reaction Status Date / Time No Known Allergies Allergy Verified 06/17/17 21:42 Date of admission: 07/02/17 20:59 Primary care physician: Spenser Moreno Consults: 07/02/17 21:08 Consult to Neurology [CONS] Routine Consulting Provider: Neurology [facility] Reason for Consult: Dizziness Call Completed: Yes 07/02/17 21:47 Consult to Occupational Therapy [CONS] Routine Comment: Evaluate, develop and implement POC Reason for Consult: ambulate and assess Consult to Physical Therapy [CONS] Routine Comment: Evaluate, develop and implement POC Reason for Consult: ambulate assess for placement need Discharging clinician: Ivy Pickard Anticipated date of discharge: 07/04/17 - Patient Status Disposition: Home, Self-Care Condition: Good Functional capacity at discharge: independent ambulation Overall status at discharge: patient is back to baseline - Discharge Instructions Instructions: Atorvastatin (By mouth), Non-epileptic Seizures (DC), Dizziness, Race Starter (GEN) Follow Up With: Perry Shi DO [Partnered Physician] - 07/21/17 8:00 am Spenser Malin MD [Primary Care Provider] - 07/08/17 3:30 pm - Diet and Activity Diet: advance to your usual diet Interval History: Patient walking around room on my arrival this morning. No complaints. States dizziness is unchanged. Hospital course: Mr. Dumas is a 82 year old male admitted for subacute onset of dizziness, worse in the past few weeks. CT angiogram showed diffuse vascular stenosis - progressed from 2014. EEG was ordered for the possiblility of seizure and was positive. He is being discharged on Keppra. - Time Spent with Patient Total time spent providing and/or coordinating discharge services: - Constitutional Vitals: Temp Pulse Resp BP Pulse Ox 97.6 F 55 18 116/49 96 07/04/17 11:31 07/04/17 11:31 07/04/17 11:31 07/04/17 11:31 07/04/17 11:31 General appearance: Present: A&O X 3, pleasant, no acute distress, answers questions appropriately - Head Head exam: Present: atraumatic, normocephalic - Eye Eye exam: Present: PERRL, conjuntiva pink, sclera anicteric Pupils: Present: PERRL - Neck Neck exam general surgery: Present: supple, trachea midline - Respiratory Respiratory exam: Present: CTAB. Absent: accessory muscle use, rales, rhonchi, wheezes - Cardiovascular Cardiovascular exam: Present: RRR, +S1, +S2, systolic murmur (holosystolic 4/6) - GI/Abdominal GI/Abdominal exam: Present: normal bowel sounds, soft, no peritoneal signs. Absent: distended, tenderness - Extremities Exam Extremities exam: Present: warm, radial pulses palpable and symmetrical. Absent : calf tenderness, cyanotic, pedal edema - Neurological Exam Neurological exam: Present: alert, oriented X3. 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 (3) Hypertension Status: Chronic Qualifiers: Hypertension type: essential hypertension Qualified Code(s): I10 - Essential (primary) hypertension (4) Fall Priority: Secondary Status: Acute Qualifiers: Encounter type: subsequent encounter Qualified Code(s): W19.XXXD - Unspecified fall, subsequent encounter Date of admission: 07/02/17 20:59 Primary care physician: Spenser Moreno Consults: 07/02/17 21:08 Consult to Neurology [CONS] Routine Consulting Provider: Neurology [facility] Reason for Consult: Dizziness Call Completed: Yes 07/02/17 21:47 Consult to Occupational Therapy [CONS] Routine Comment: Evaluate, develop and implement POC Reason for Consult: ambulate and assess Consult to Physical Therapy [CONS] Routine Comment: Evaluate, develop and implement POC Reason for Consult: ambulate assess for placement need 07/04/17 13:00 Consult to Interpret Exam [CONS] Routine Consulting Provider: Perry Shi Consult to Interpret Exam: Interpret EEG Hospital course: Mr. Dumas is a 82 year old male - Time Spent with Patient Total time spent providing and/or coordinating discharge services: 38min - Constitutional Vitals: Temp Pulse Resp BP Pulse Ox 97.6 F 55 18 116/49 96 07/04/17 11:31 07/04/17 11:31 07/04/17 11:31 07/04/17 11:31 07/04/17 11:31 - Attending Attestation I examined this patient and my medical decision-making was reviewed with the Resident Physician on 07/04/17. I agree with the documented findings, disposition and treatment plan as described except to the extent set forth below. Mr. Dumas is currently in observation for dizziness. He has been found to have intracranial arterial stenosis and L temporal seizure focus. He is afebrile with stable vitals and ready for discharge home on new meds of Keppra and Lipitor. Exam Alert. comfortable Mucus membranes moist Heart reg with murmur systolic Lungs clear Abd soft Plan D/C home today with outpatient follow up.
--- NOTE | 2017-07-04 15:04 | EEG/EMG/Oth Biometrics Report ---
EEG Procedure Report Date of procedure: 07/04/17 EEG Procedure: Routine EEG Procedure Note: This is a report of a 21 channel bipolar and referential EEG. A posterior dominant rhythm of 8 Hz moderate voltage alpha frequencies identified symmetrically in the occipital head regions. This rhythm attenuates symmetrically with eye opening. Hyperventilation was not performed during the recording. Peroids of drowsiness and stage II sleep are identified as referenced by drop out of the posterior dominant rhythm, and the emergence of vertex activity, k- complexes and sleep spindles. Also identified during sleep are phase reversals localized to the left temporal region, consistent with epileptiform discharges. The EKG rhythm strip reveals sinus bradycardia at 54 BPM. Impressions: This EEG is abnormal, revealing epileptiform discharges emammating from the left temporal region. Please correlate clinically.
== END 2017-07-04 15:40 | disposition home or self-care (01) ==
LOC: 3BNU 16:55 → EMEROO 16:55 → 3BNU 21:33
PROVIDERS: ADMIT Internal Medicine Hematology & Oncology; ATTEND Registered Nurse